=== PATIENT | male | born 1940 | race Caucasian/White ===

== ENCOUNTER 2023-09-23 06:22 | Emergency (ER) | payer MEDICARE, BC ==
[~2023-09-23] VITALS: Ht 172.7 cm; Wt 113.2 kg
[~2023-09-23 06:22] MED LIST: PANT40TA54 PO
[2023-09-23] MEDS ORDERED: dexamethasone sod phosphate 10mg/ml inj PO STA (07:15)
[2023-09-23] MEDS ORDERED: NIRM1TAB5 PO (07:20)
[2023-09-23 07:50] VITALS: BP 154/88; PULSE 72; RESP 16; TEMP 98.1; O2SAT 98
== END 2023-09-23 07:53 | disposition home or self-care (01) ==
LOC: ER 06:23
DX: U07.1 COVID-19 (principal)
CPT/HCPCS: 36415; 87811; 99283; J1100